=== PATIENT | female | born 1985 | race Caucasian/White ===

== ENCOUNTER 2025-02-02 21:22 | Inpatient (IN) ==
[2025-02-02] MEDS ORDERED: OXYTOCIN 30 UNITS/NSS 30 UNITS/500 ML BAG IV PRN (22:18)
--- NOTE | 2025-02-02 22:20 | History & Physical Report ---
Date of Service February 02, 2025 Assessment & Plan (1) Rupture, membranes, premature: Plan grossly ruptured. fetus category one. Not really traci. Offered expectant management with walking to see if contractions start or pit now. Would like more conservative management. Discussed would wait no more than 6-8 hours and would then need pitocin if not traci or not making progress. She expresses understanding. History of Present Illness Chief Complaint: prom Primary Care Provider: Elsi Tarango PA-C Patient is a 39yowf with iup at 40 0/7 who presents to labor and delivery with complaints of large gush of fluid at 8pm. Clear, continued leaking. no vb. not really noting contractions. +fm. 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 most sporadic - echo recommended--wnl ak OB Labs: Blood Type A Positive 07/19/24 Antibody Screen NEGATIVE 07/19/24 Hgb 11.2 g/dl (12.0-16.0) L 11/10/24 Hct 33.3 % (37.0-47.0) L 11/10/24 MCV 84.8 fL (80.0-100.0) 07/19/24 Plt Count 222 K/uL (130-400) 07/19/24 Rubella IgG Antibody Immune (Immune) 07/19/24 Treponema pallidum Ab Negative (Negative) 11/10/24 Hep Bs Antigen Negative (Negative) 07/19/24 Hepatitis C Antibody Negative (Negative) 07/19/24 HIV 1&2 Ab/P24 Ag 4thGn Negative (Negative) 07/19/24 Glucose 1 Hr 50 gm 141 mg/dl (70-130) H 11/10/24 Maternal Serum AFP 39.5 ng/mL 08/15/24 OB Optional Labs: Chlamydia trachomatis RNA Not Detected (NotDetected) 07/19/24 Neisseria gonorrhoeae RNA Not Detected (NotDetected) 07/19/24 Alpha Fetoprotein Triple Screen SEE NOTE 08/15/24 Labs Reviewed: low risk panorama--[facility] genetics positive hemachromatosis and another --ak fob negative genetic screening. gbs neg Allergies Allergy/AdvReac Type Severity Reaction Status Date / Time Cephalosporins Allergy hives and Verified 02/02/25 21:38 low BP Home Medications Medication Instructions Recorded Confirmed Type prenat.vits,davida,php-[id number] PO 10/07/22 01/30/25 History aspirin 81 mg PO DAILY 11/10/24 02/02/25 History Patient History Medical History Low lying placenta nos or without hemorrhage, unspecified trimester Cholesteatoma History of chicken pox Exposure to cat feces Urticaria Allergic rhinitis Allergy to macrolide Allergy to cephalosporin Surgical History History of ear surgery cholesteatoma Family History Mother Asthma Allergic rhinitis Parkinson disease Sister Asthma Allergic rhinitis Grandfather (Paternal) Myocardial infarction Father Hypertension Other Breast cancer Denies family history of Ovarian cancer Prostate cancer Colorectal cancer Social History Smoking Status: Never smoker Second Hand Exposure: No; Do You Dip or Chew Tobacco: No; Hx Alcohol Use: No Hx Substance Use: No Preferred Language: [place] Communication Ability: Effective Mortgage Lender Required: No Beliefs That Will Affect Care: None marital status: marital status details: Andrews Fortune (42) [phone] Current Living Situation: Spouse Current Living Situation Comment: lives with spouse, cat-spouse changing litter current occupational status: employed 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 Other Information That Helps Us Care for You: No Feels Safe at Home: Yes Safety Concerns: Feels Safe At This Time Childhood Exposure to Second-Hand Smoke: No Diet: regular caffeine: Yes Dental Care, Regularly: Yes Physical Activity Frequency: 3-4 Times per Week Seatbelt Use: always Sunscreen Use: Yes Assistive Devices: Glasses Physical Exam Constitutional: WD/WN, vitals as above Gastrointestinal (Abdomen): soft, nt, nd, gravid Psychiatric: A+Ox3, euthymic affect Genitourinary: sse--grossly ruptured sve--/-3 toco--carlos efm--130s with mod variability, accels to 160s, no decels Results & Data Vital Signs (Past 12 Hours) Vital Signs Temp Pulse Resp BP 02/02/25 21:42 36.7 C 18 137/86 02/02/25 21:37 36.7 C 95 H 18 137/86 Coding Level of Care Code None Diagnoses Rupture, membranes, premature O42.90
[2025-02-02 23:21] LABS: Hematocrit (blood only) 34.0 % (37.0-47.0); Hemoglobin 10.8 g/dl (12.0-16.0); Mean Corpuscular Hemoglobin 26.4 pg (25.0-34.0); Mean Corpuscular Volume 83.1 fL (80.0-100.0); Platelet Count 171 K/uL (130-400); RDW Standard Deviation 47.3 fL (36.4-46.3); Red Blood Count 4.09 M/uL (4.20-5.40); White Blood Count 10.03 K/ul (4.8-10.8)
[2025-02-03] MEDS: LACTATED RINGER'S 1,000 ML IV PRN (03:14)
[2025-02-03] MEDS: OXYTOCIN 30 UNITS/NSS 30 UNITS/500 ML BAG IV PRN (03:14)
--- NOTE | 2025-02-03 07:27 | Anesthesiology Consultation ---
Date of Service February 03, 2025 Assessment & Plan Chart Review Chart Review: Acceptable Risk for Surgery, Patient NOT seen in Pre Admission Testing and Acceptable Risk for Labor Epidural Consults Requested none ASA ASA2 Proposed Anesthesia Anesthesia Type: Labor Epidural and CSE History Height/Weight Height: 5 ft 5 in Weight: 83.915 kg Allergies Allergy/AdvReac Type Severity Reaction Status Date / Time Cephalosporins Allergy hives and Verified 02/02/25 21:38 low BP Medications Home Medications Medication Instructions Recorded Confirmed Last Taken prenat.vits,davida,[id number] PO 10/07/22 01/30/25 02/01/25 21:00 aspirin 81 mg PO DAILY 11/10/24 02/02/25 02/01/25 21:00 Active Medications Generic Name Dose Route Start Last Admin Trade Name Freq PRN Reason Stop Dose Admin Lactated Ringer's 1,000 mls @ 125 mls/hr 02/02/25 22:18 02/03/25 06:45 Lr IV 02/04/25 22:17 999 mls/hr .Q8H PRN Infusion L&D Protocol Protocol Oxytocin 30 units in 500 mls @ 10 mls/hr 02/03/25 03:03 02/03/25 05:53 Pitocin 30 Units/Nss IV 02/05/25 03:02 0.6 units/hr .Q24H PRN 10 mls/hr Labor Induction/Augmentation Titration Protocol 0.6 UNITS/HR Past Medical History Medical History Low lying placenta nos or without hemorrhage, unspecified trimester Cholesteatoma History of chicken pox Exposure to cat feces Urticaria Allergic rhinitis Allergy to macrolide Allergy to cephalosporin Exercise / Class Metabolic Activity II 4-5 Yardwork/Stairs/Walk up hill Past Family History Family History Mother Asthma Allergic rhinitis Parkinson disease Sister Asthma Allergic rhinitis Grandfather (Paternal) Myocardial infarction Father Hypertension Other Breast cancer Denies family history of Ovarian cancer Prostate cancer Colorectal cancer Past Surgical History Surgical History History of ear surgery cholesteatoma Past Anesthesia History No Hx of Anesthesia Complications and No Family Hx of Anesthesia Complications History of PONV No Hx of PONV and No Hx of Motion Sickness Social History Smoking Status: Never smoker Do You Dip or Chew Tobacco: No Hx Alcohol Use: No Hx Substance Use: No substance use type: does not use Physical Exam Vital Signs Last Vital Signs Temp 36.6 C 02/03/25 07:01 Pulse 84 02/03/25 07:02 Resp 22 02/03/25 07:01 BP 160/96 H 02/03/25 07:02 Testing Laboratory Results 02/02/25 22:39
[2025-02-03] MEDS: BUPIVACAINE 0.25% PF 30 ML VIAL ONE (08:09)
[2025-02-03] MEDS: fentANYL 2 MCG/ML BUPIVacaine 0.125%-NSS 100ML BAG ONE (08:10)
[2025-02-03] MEDS: LIDOCAINE 2%/EPINEPHRINE 1:200,000 20 ML PF ONE (08:10)
[2025-02-03] MEDS ORDERED: BUPIVACAINE 0.25% PF 30 ML VIAL EPI PRN (08:11)
[2025-02-03] MEDS ORDERED: LIDOCAINE 2% MPF LOCAL 5 ML VIAL EPI PRN (08:11)
[2025-02-03] MEDS ORDERED: diphenhydrAMINE 50 MG/ML VIAL IV PRN (08:11)
[2025-02-03] MEDS ORDERED: NALOXONE HCL 0.4 MG/1 ML VIAL/CARP IV PRN (08:11)
[2025-02-03] MEDS ORDERED: PROMETHAZINE 6.25 MG/50.25 ML BAG IV PRN (08:11)
[2025-02-03] MEDS ORDERED: NALBUPHINE HCL INJ 10 MG/ML AMP IV PRN (08:11)
[2025-02-03] MEDS ORDERED: SODIUM CHLORIDE 0.9% PF INJ 10 ML VIAL EPI PRN (08:11)
[2025-02-03] MEDS ORDERED: NALOXONE HCL 1 MG in SODIUM CHLORIDE 0.9% 1,000 ML IV PRN (08:11)
[2025-02-03] MEDS ORDERED: ROPIVACAINE 0.5% PF 5 MG/ML 20 ML VIAL EPI PRN (08:11)
[2025-02-03] MEDS: SODIUM CHLORIDE 0.9% PF INJ 10 ML VIAL ONE (08:22)
[2025-02-03] MEDS: BUPIVACAINE 0.25% PF 30 ML VIAL EPI STA (08:22)
[2025-02-03] MEDS: LIDOCAINE 2%/EPINEPHRINE 1:200,000 20 ML PF EPI STA (08:23)
[2025-02-03] MEDS: SODIUM CHLORIDE 0.9% PF INJ 10 ML VIAL EPI STA (08:23)
--- NOTE | 2025-02-03 09:04 | Labor Progress Brief Note ---
Date of Service February 03, 2025 Subjective comfortable w/ epidural Assessment & Plan (1) Rupture, membranes, premature: Plan: 39 yo G1 at 40 1/7 wga presents w/ prom VSS Fetus cat 1 Labor - pit at [address] Admission and Anticipated Discharge Date Admission Date: February 02, 2025 Physical Exam Genitourinary: Manual OB Exam: + cervical dilation (2-3), + cervical effacement 50% and + station -2 OB Exam Monitor Tracing: + external FHT monitor used, + external uterine monitor used (q3) and + category I (130-135/mod/+accel/-decel) Results & Data Vital Signs (Past 12 Hours) Vital Signs Temp Pulse Resp BP Pulse Ox 02/03/25 08:55 95 H 98 02/03/25 08:50 116 H 97 02/03/25 08:48 100 H 106/63 02/03/25 08:45 98 H 98 02/03/25 08:44 84 104/64 02/03/25 08:40 106 H 97 02/03/25 08:37 94 H 110/62 02/03/25 08:35 105 H 97 02/03/25 08:33 100 H 118/71 02/03/25 08:30 107 H 98 02/03/25 08:28 94 H 111/58 L 02/03/25 08:25 117 H 97 02/03/25 08:24 90 104/58 L 02/03/25 08:20 111 H 97 02/03/25 08:17 93 H 97/58 L 02/03/25 08:15 97 H 101/63 98 02/03/25 08:13 82 102/56 L 02/03/25 08:11 80 100/58 L 02/03/25 08:10 76 96 02/03/25 08:05 87 86/56 L 96 02/03/25 08:04 102 H 98/65 L 02/03/25 08:02 98 H 97/55 L 02/03/25 08:00 104 H 97 02/03/25 07:55 122 H 97 02/03/25 07:50 94 H 100 02/03/25 07:45 102 H 98 02/03/25 07:40 99 H 98 02/03/25 07:35 101 H 98 02/03/25 07:30 93 H 98 02/03/25 07:25 88 97 02/03/25 07:02 84 160/96 H 02/03/25 07:01 22 02/03/25 07:01 97.9 F 22 02/03/25 05:55 71 140/98 02/03/25 05:43 75 141/93 H 02/03/25 04:57 98.1 F 80 16 102/64 02/03/25 03:44 79 119/76 02/03/25 02:52 97.9 F 88 16 117/77 02/02/25 23:50 97.9 F 02/02/25 21:42 98.1 F 18 137/86 02/02/25 21:37 98.1 F 95 H 18 137/86 Coding Level of Care Code None Diagnoses Rupture, membranes, premature O42.90
--- NOTE | 2025-02-03 13:26 | Labor Progress Brief Note ---
Date of Service February 03, 2025 Subjective comfortable w/ epidural, pit was turned off earlier due to decel Assessment & Plan (1) Rupture, membranes, premature: Plan: 39 yo G1 at 40 1/7 wga presents w/ prom VSS Fetus cat 1 Labor - pit was stopped x 1hr due to decels, RN checked and progress noted 3-4. Fetus allowed to recover to cat 1 with hydration, pit now at 4 again GBS neg epidural in place Admission and Anticipated Discharge Date Admission Date: February 02, 2025 Physical Exam Genitourinary: OB Exam Monitor Tracing: + external FHT monitor used, + external uterine monitor used (q3) and + category I (130-135/mod/+accel/-decel) Results & Data Vital Signs (Past 12 Hours) Vital Signs Temp Pulse Resp BP Pulse Ox 02/03/25 13:20 85 100 02/03/25 13:18 93 H 116/71 02/03/25 13:15 88 99 02/03/25 13:10 86 100 02/03/25 13:05 90 100 02/03/25 13:03 99 H 124/73 02/03/25 13:00 94 H 100 02/03/25 12:55 94 H 100 02/03/25 12:50 97 H 99 02/03/25 12:49 111 H 146/80 H 02/03/25 12:45 99 H 100 02/03/25 12:40 97 H 100 02/03/25 12:35 93 H 99 02/03/25 12:33 93 H 124/80 02/03/25 12:30 100 H 99 02/03/25 12:25 110 H 99 02/03/25 12:20 96 H 100 02/03/25 12:18 101 H 114/71 02/03/25 12:15 116 H 99 02/03/25 12:10 91 H 100 02/03/25 12:05 99 H 100 02/03/25 12:03 85 116/81 02/03/25 12:00 91 H 100 02/03/25 11:55 91 H 100 02/03/25 11:50 92 H 100 02/03/25 11:48 86 116/78 02/03/25 11:45 77 100 02/03/25 11:40 85 100 02/03/25 11:36 84 90 02/03/25 11:35 85 100 02/03/25 11:34 84 122/76 02/03/25 11:30 91 H 98 02/03/25 11:28 87 91 02/03/25 11:25 88 99 02/03/25 11:20 95 H 100 02/03/25 11:19 90 111/68 02/03/25 11:15 81 99 02/03/25 11:10 79 99 02/03/25 11:05 104 H 100 02/03/25 11:04 77 106/59 L 02/03/25 11:00 83 98 02/03/25 10:55 81 99 02/03/25 10:50 89 100 02/03/25 10:48 86 105/60 02/03/25 10:45 81 99 02/03/25 10:40 96 H 98 02/03/25 10:35 89 98 02/03/25 10:34 19 02/03/25 10:34 97.7 F 19 02/03/25 10:32 93 H 116/74 02/03/25 10:30 122 H 99 02/03/25 10:25 90 100 02/03/25 10:22 90 111/71 02/03/25 10:20 80 100 02/03/25 10:15 88 100 02/03/25 10:13 85 111/71 02/03/25 10:10 97 H 99 02/03/25 10:05 85 97 02/03/25 10:02 116 H 105/66 02/03/25 10:00 101 H 98 02/03/25 09:55 92 H 97 02/03/25 09:53 93 H 109/72 02/03/25 09:50 93 H 97 02/03/25 09:45 99 H 96 02/03/25 09:43 101 H 109/70 02/03/25 09:40 91 H 97 02/03/25 09:35 109 H 96 02/03/25 09:33 90 112/67 02/03/25 09:30 110 H 98 02/03/25 09:25 96 H 97 02/03/25 09:23 100 H 118/72 02/03/25 09:20 109 H 100 02/03/25 09:18 76 94 02/03/25 09:15 79 96 02/03/25 09:13 94 02/03/25 09:13 100 H 02/03/25 09:13 85 103/57 L 02/03/25 09:10 99 H 97 02/03/25 09:05 83 94 02/03/25 09:03 103 H 102/61 02/03/25 09:00 106 H 98 02/03/25 08:55 95 H 98 02/03/25 08:50 116 H 97 02/03/25 08:48 100 H 106/63 02/03/25 08:45 98 H 98 02/03/25 08:44 84 104/64 02/03/25 08:40 106 H 97 02/03/25 08:37 94 H 110/62 02/03/25 08:35 105 H 97 02/03/25 08:33 100 H 118/71 02/03/25 08:30 107 H 98 02/03/25 08:28 94 H 111/58 L 02/03/25 08:25 117 H 97 02/03/25 08:24 90 104/58 L 02/03/25 08:20 111 H 97 02/03/25 08:17 93 H 97/58 L 02/03/25 08:15 97 H 101/63 98 02/03/25 08:13 82 102/56 L 02/03/25 08:11 80 100/58 L 02/03/25 08:10 76 96 02/03/25 08:05 87 86/56 L 96 02/03/25 08:04 102 H 98/65 L 02/03/25 08:02 98 H 97/55 L 02/03/25 08:00 104 H 97 02/03/25 07:55 122 H 97 02/03/25 07:50 94 H 100 02/03/25 07:45 102 H 98 02/03/25 07:40 99 H 98 02/03/25 07:35 101 H 98 02/03/25 07:30 93 H 98 02/03/25 07:25 88 97 02/03/25 07:02 84 160/96 H 02/03/25 07:01 22 02/03/25 07:01 97.9 F 22 02/03/25 05:55 71 140/98 02/03/25 05:43 75 141/93 H 02/03/25 04:57 98.1 F 80 16 102/64 02/03/25 03:44 79 119/76 02/03/25 02:52 97.9 F 88 16 117/77 Coding Level of Care Code None Diagnoses Rupture, membranes, premature O42.90
--- NOTE | 2025-02-03 15:56 | Labor Progress Brief Note ---
Date of Service February 03, 2025 Subjective comfortable w/ epidural, pit at 8 now Assessment & Plan (1) Rupture, membranes, premature: Plan: 39 yo G1 at 40 1/7 wga presents w/ prom VSS Fetus cat 2 but reassuinrg. Primarily cat 1, but during check and shortly before had a short decel that recovered so will continue to monitor Labor - pit at 8, good progress noted. Continue pitocin GBS neg epidural in place Admission and Anticipated Discharge Date Admission Date: February 02, 2025 Physical Exam Genitourinary: Manual OB Exam: + cervical dilation 5 cm, + cervical effacement 80% and + station -1 OB Exam Monitor Tracing: + external FHT monitor used, + external uterine monitor used and + category II (120/mod/+accel/?just had decel while laying during check/rotating) Results & Data Vital Signs (Past 12 Hours) Vital Signs Temp Pulse Resp BP Pulse Ox 02/03/25 15:50 89 99 02/03/25 15:49 101 H 100/64 02/03/25 15:45 106 H 96 02/03/25 15:40 88 98 02/03/25 15:35 106 H 97 02/03/25 15:33 104 H 116/76 02/03/25 15:30 105 H 98 02/03/25 15:25 94 H 98 02/03/25 15:24 101 H 92 02/03/25 15:20 93 H 98 02/03/25 15:19 88 126/77 02/03/25 15:15 90 98 02/03/25 15:12 100 H 93 02/03/25 15:10 93 H 99 02/03/25 15:05 93 H 98 02/03/25 15:03 94 H 114/73 02/03/25 15:00 92 H 97 02/03/25 14:55 92 H 99 02/03/25 14:50 103 H 98 02/03/25 14:49 91 H 125/81 02/03/25 14:45 100 H 98 02/03/25 14:40 98.1 F 104 H 98 02/03/25 14:35 108 H 94 02/03/25 14:33 105 H 136/83 02/03/25 14:30 143 H 98 02/03/25 14:25 100 H 99 02/03/25 14:20 98 H 99 02/03/25 14:18 96 H 108/72 02/03/25 14:15 103 H 99 02/03/25 14:10 91 H 98 02/03/25 14:05 93 H 99 02/03/25 14:03 97 H 115/74 02/03/25 14:00 96 H 97 02/03/25 13:55 85 99 02/03/25 13:50 94 H 100 02/03/25 13:49 97 H 114/71 02/03/25 13:45 89 100 02/03/25 13:40 95 H 100 02/03/25 13:35 99 H 99 02/03/25 13:33 98 H 116/73 02/03/25 13:30 94 H 99 02/03/25 13:25 87 100 02/03/25 13:20 85 100 02/03/25 13:18 93 H 116/71 02/03/25 13:15 88 99 02/03/25 13:10 86 100 02/03/25 13:05 90 100 02/03/25 13:03 99 H 124/73 02/03/25 13:00 94 H 100 02/03/25 12:55 94 H 100 02/03/25 12:50 97 H 99 02/03/25 12:49 111 H 146/80 H 02/03/25 12:45 99 H 100 02/03/25 12:40 97 H 100 02/03/25 12:35 93 H 99 02/03/25 12:33 93 H 124/80 02/03/25 12:30 100 H 99 02/03/25 12:25 110 H 99 02/03/25 12:20 96 H 100 02/03/25 12:18 101 H 114/71 02/03/25 12:15 116 H 99 02/03/25 12:10 91 H 100 02/03/25 12:05 99 H 100 02/03/25 12:03 85 116/81 02/03/25 12:00 91 H 100 02/03/25 11:55 91 H 100 02/03/25 11:50 92 H 100 02/03/25 11:48 86 116/78 02/03/25 11:45 77 100 02/03/25 11:40 85 100 02/03/25 11:36 84 90 02/03/25 11:35 85 100 02/03/25 11:34 84 122/76 02/03/25 11:30 91 H 98 02/03/25 11:28 87 91 02/03/25 11:25 88 99 02/03/25 11:20 95 H 100 02/03/25 11:19 90 111/68 02/03/25 11:15 81 99 02/03/25 11:10 79 99 02/03/25 11:05 104 H 100 02/03/25 11:04 77 106/59 L 02/03/25 11:00 83 98 02/03/25 10:55 81 99 02/03/25 10:50 89 100 02/03/25 10:48 86 105/60 02/03/25 10:45 81 99 02/03/25 10:40 96 H 98 02/03/25 10:35 89 98 02/03/25 10:34 19 02/03/25 10:34 97.7 F 19 02/03/25 10:32 93 H 116/74 02/03/25 10:30 122 H 99 02/03/25 10:25 90 100 02/03/25 10:22 90 111/71 02/03/25 10:20 80 100 02/03/25 10:15 88 100 02/03/25 10:13 85 111/71 02/03/25 10:10 97 H 99 02/03/25 10:05 85 97 02/03/25 10:02 116 H 105/66 02/03/25 10:00 101 H 98 02/03/25 09:55 92 H 97 02/03/25 09:53 93 H 109/72 02/03/25 09:50 93 H 97 02/03/25 09:45 99 H 96 02/03/25 09:43 101 H 109/70 02/03/25 09:40 91 H 97 02/03/25 09:35 109 H 96 02/03/25 09:33 90 112/67 02/03/25 09:30 110 H 98 02/03/25 09:25 96 H 97 02/03/25 09:23 100 H 118/72 02/03/25 09:20 109 H 100 02/03/25 09:18 76 94 02/03/25 09:15 79 96 02/03/25 09:13 94 02/03/25 09:13 100 H 02/03/25 09:13 85 103/57 L 02/03/25 09:10 99 H 97 02/03/25 09:05 83 94 02/03/25 09:03 103 H 102/61 02/03/25 09:00 106 H 98 02/03/25 08:55 95 H 98 02/03/25 08:50 116 H 97 02/03/25 08:48 100 H 106/63 02/03/25 08:45 98 H 98 02/03/25 08:44 84 104/64 02/03/25 08:40 106 H 97 02/03/25 08:37 94 H 110/62 02/03/25 08:35 105 H 97 02/03/25 08:33 100 H 118/71 02/03/25 08:30 107 H 98 02/03/25 08:28 94 H 111/58 L 02/03/25 08:25 117 H 97 02/03/25 08:24 90 104/58 L 02/03/25 08:20 111 H 97 02/03/25 08:17 93 H 97/58 L 02/03/25 08:15 97 H 101/63 98 02/03/25 08:13 82 102/56 L 02/03/25 08:11 80 100/58 L 02/03/25 08:10 76 96 02/03/25 08:05 87 86/56 L 96 02/03/25 08:04 102 H 98/65 L 02/03/25 08:02 98 H 97/55 L 02/03/25 08:00 104 H 97 02/03/25 07:55 122 H 97 02/03/25 07:50 94 H 100 02/03/25 07:45 102 H 98 02/03/25 07:40 99 H 98 02/03/25 07:35 101 H 98 02/03/25 07:30 93 H 98 02/03/25 07:25 88 97 02/03/25 07:02 84 160/96 H 02/03/25 07:01 22 02/03/25 07:01 97.9 F 22 02/03/25 05:55 71 140/98 02/03/25 05:43 75 141/93 H 02/03/25 04:57 98.1 F 80 16 102/64 Coding Level of Care Code None Diagnoses Rupture, membranes, premature O42.90
[2025-02-03] MEDS: CALCIUM CARBONATE 500 MG CHEWABLE TAB PO PRN (17:03)
[2025-02-03] MEDS: fentANYL 2 MCG/ML BUPIVacaine 0.125%-NSS 100ML BAG EPI PRN (17:28)
[2025-02-03] MEDS: ACETAMINOPHEN 325 MG TAB PO PRN (18:06)
[2025-02-03] MEDS: ONDANSETRON INJ 2 MG/ML 2 ML VIAL IV PRN (18:15)
--- NOTE | 2025-02-03 18:25 | Labor Progress Brief Note ---
Date of Service February 03, 2025 Subjective comfortable w/ epidural, pit at 8 Assessment & Plan (1) Rupture, membranes, premature: Plan: 39 yo G1 at 40 1/7 wga presents w/ prom VSS Fetus cat 2 but reassuring w/ mod variability still, occ variables Labor - pit remains at 8, continued good progress noted. Continue pitocin GBS neg epidural in place Admission and Anticipated Discharge Date Admission Date: February 02, 2025 Physical Exam Genitourinary: Manual OB Exam: + cervical dilation (8-9), + cervical effacement 90% and + station 0 OB Exam Monitor Tracing: + external FHT monitor used, + external uterine monitor used (q4) and + category II (135- 140/mod/+accel/intermit variable) Results & Data Vital Signs (Past 12 Hours) Vital Signs Temp Pulse Resp BP Pulse Ox 02/03/25 18:20 133 H 142/84 H 02/03/25 18:15 139 H 98 02/03/25 18:13 112 H 91 02/03/25 18:10 101 H 99 02/03/25 18:05 110 H 99 02/03/25 18:03 98 H 133/85 02/03/25 18:00 95 H 99 02/03/25 17:55 95 H 98 02/03/25 17:50 96 H 98 02/03/25 17:49 100 H 135/86 02/03/25 17:45 116 H 99 02/03/25 17:40 147 H 98 02/03/25 17:35 90 100 02/03/25 17:34 93 H 136/84 02/03/25 17:30 112 H 100 02/03/25 17:25 99 H 100 02/03/25 17:20 108 H 100 02/03/25 17:19 104 H 137/86 02/03/25 17:15 96 H 100 02/03/25 17:10 97 H 98 02/03/25 17:05 110 H 99 02/03/25 17:00 101 H 99 02/03/25 16:55 82 99 02/03/25 16:50 89 100 02/03/25 16:48 100 H 103/65 02/03/25 16:45 81 98 02/03/25 16:40 83 98 02/03/25 16:35 85 98 02/03/25 16:33 80 101/56 L 02/03/25 16:30 76 98 02/03/25 16:25 79 99 02/03/25 16:20 86 99 02/03/25 16:18 82 108/61 02/03/25 16:15 81 100 02/03/25 16:10 90 99 02/03/25 16:05 85 100 02/03/25 16:00 85 100 02/03/25 15:55 88 99 02/03/25 15:50 89 99 02/03/25 15:49 101 H 100/64 02/03/25 15:45 106 H 96 02/03/25 15:40 88 98 02/03/25 15:35 106 H 97 02/03/25 15:33 104 H 116/76 02/03/25 15:30 105 H 98 02/03/25 15:25 94 H 98 02/03/25 15:24 101 H 92 02/03/25 15:20 93 H 98 02/03/25 15:19 88 126/77 02/03/25 15:15 90 98 02/03/25 15:12 100 H 93 02/03/25 15:10 93 H 99 02/03/25 15:05 93 H 98 02/03/25 15:03 94 H 114/73 02/03/25 15:00 92 H 97 02/03/25 14:55 92 H 99 02/03/25 14:50 103 H 98 02/03/25 14:49 91 H 125/81 02/03/25 14:45 100 H 98 02/03/25 14:40 98.1 F 104 H 98 02/03/25 14:35 108 H 94 02/03/25 14:33 105 H 136/83 02/03/25 14:30 143 H 98 02/03/25 14:25 100 H 99 02/03/25 14:20 98 H 99 02/03/25 14:18 96 H 108/72 02/03/25 14:15 103 H 99 02/03/25 14:10 91 H 98 02/03/25 14:05 93 H 99 02/03/25 14:03 97 H 115/74 02/03/25 14:00 96 H 97 02/03/25 13:55 85 99 02/03/25 13:50 94 H 100 02/03/25 13:49 97 H 114/71 02/03/25 13:45 89 100 02/03/25 13:40 95 H 100 02/03/25 13:35 99 H 99 02/03/25 13:33 98 H 116/73 02/03/25 13:30 94 H 99 02/03/25 13:25 87 100 02/03/25 13:20 85 100 02/03/25 13:18 93 H 116/71 02/03/25 13:15 88 99 02/03/25 13:10 86 100 02/03/25 13:05 90 100 02/03/25 13:03 99 H 124/73 02/03/25 13:00 94 H 100 02/03/25 12:55 94 H 100 02/03/25 12:50 97 H 99 02/03/25 12:49 111 H 146/80 H 02/03/25 12:45 99 H 100 02/03/25 12:40 97 H 100 02/03/25 12:35 93 H 99 02/03/25 12:33 93 H 124/80 02/03/25 12:30 100 H 99 02/03/25 12:25 110 H 99 02/03/25 12:20 96 H 100 02/03/25 12:18 101 H 114/71 02/03/25 12:15 116 H 99 02/03/25 12:10 91 H 100 02/03/25 12:05 99 H 100 02/03/25 12:03 85 116/81 02/03/25 12:00 91 H 100 02/03/25 11:55 91 H 100 02/03/25 11:50 92 H 100 02/03/25 11:48 86 116/78 02/03/25 11:45 77 100 02/03/25 11:40 85 100 02/03/25 11:36 84 90 02/03/25 11:35 85 100 02/03/25 11:34 84 122/76 02/03/25 11:30 91 H 98 02/03/25 11:28 87 91 02/03/25 11:25 88 99 02/03/25 11:20 95 H 100 02/03/25 11:19 90 111/68 02/03/25 11:15 81 99 02/03/25 11:10 79 99 02/03/25 11:05 104 H 100 02/03/25 11:04 77 106/59 L 02/03/25 11:00 83 98 02/03/25 10:55 81 99 02/03/25 10:50 89 100 02/03/25 10:48 86 105/60 02/03/25 10:45 81 99 02/03/25 10:40 96 H 98 02/03/25 10:35 89 98 02/03/25 10:34 19 02/03/25 10:34 97.7 F 19 02/03/25 10:32 93 H 116/74 02/03/25 10:30 122 H 99 02/03/25 10:25 90 100 02/03/25 10:22 90 111/71 02/03/25 10:20 80 100 02/03/25 10:15 88 100 02/03/25 10:13 85 111/71 02/03/25 10:10 97 H 99 02/03/25 10:05 85 97 02/03/25 10:02 116 H 105/66 02/03/25 10:00 101 H 98 02/03/25 09:55 92 H 97 02/03/25 09:53 93 H 109/72 02/03/25 09:50 93 H 97 02/03/25 09:45 99 H 96 02/03/25 09:43 101 H 109/70 02/03/25 09:40 91 H 97 02/03/25 09:35 109 H 96 02/03/25 09:33 90 112/67 02/03/25 09:30 110 H 98 02/03/25 09:25 96 H 97 02/03/25 09:23 100 H 118/72 02/03/25 09:20 109 H 100 02/03/25 09:18 76 94 02/03/25 09:15 79 96 02/03/25 09:13 94 02/03/25 09:13 100 H 02/03/25 09:13 85 103/57 L 02/03/25 09:10 99 H 97 02/03/25 09:05 83 94 02/03/25 09:03 103 H 102/61 02/03/25 09:00 106 H 98 02/03/25 08:55 95 H 98 02/03/25 08:50 116 H 97 02/03/25 08:48 100 H 106/63 02/03/25 08:45 98 H 98 02/03/25 08:44 84 104/64 02/03/25 08:40 106 H 97 02/03/25 08:37 94 H 110/62 02/03/25 08:35 105 H 97 02/03/25 08:33 100 H 118/71 02/03/25 08:30 107 H 98 02/03/25 08:28 94 H 111/58 L 02/03/25 08:25 117 H 97 02/03/25 08:24 90 104/58 L 02/03/25 08:20 111 H 97 02/03/25 08:17 93 H 97/58 L 02/03/25 08:15 97 H 101/63 98 02/03/25 08:13 82 102/56 L 02/03/25 08:11 80 100/58 L 02/03/25 08:10 76 96 02/03/25 08:05 87 86/56 L 96 02/03/25 08:04 102 H 98/65 L 02/03/25 08:02 98 H 97/55 L 02/03/25 08:00 104 H 97 02/03/25 07:55 122 H 97 02/03/25 07:50 94 H 100 02/03/25 07:45 102 H 98 02/03/25 07:40 99 H 98 02/03/25 07:35 101 H 98 02/03/25 07:30 93 H 98 02/03/25 07:25 88 97 02/03/25 07:02 84 160/96 H 02/03/25 07:01 22 02/03/25 07:01 97.9 F 22 Coding Level of Care Code None Diagnoses Rupture, membranes, premature O42.90
[2025-02-03] MEDS: ACETAMINOPHEN 325 MG TAB ONE (18:40)
--- NOTE | 2025-02-03 22:27 | Labor Progress Brief Note ---
Date of Service February 03, 2025 Subjective pushing for about 30 min Assessment & Plan (1) Rupture, membranes, premature: Plan: 39 yo G1 at 40 1/7 wga presents w/ prom VSS Fetus cat 2 but reassuring w/ mod variability still Labor - did practice push that was ineffective initially, now pushing more effectively with appropriate recovery to baseline and mod variability. Continue pushing GBS neg epidural in place Admission and Anticipated Discharge Date Admission Date: February 02, 2025 Physical Exam Genitourinary: EFM 135-140, mod variability, variables w/ pushing that recover and maintain at mod variability station +2 with effective pushing Results & Data Vital Signs (Past 12 Hours) Vital Signs Temp Pulse Resp BP Pulse Ox 02/03/25 22:20 127 H 98 02/03/25 22:15 112 H 98 02/03/25 22:10 90 02/03/25 22:10 125 H 02/03/25 22:10 117 H 94 02/03/25 22:05 126 H 90 02/03/25 22:00 99 H 98 02/03/25 21:55 83 99 02/03/25 21:51 95 H 89 L 02/03/25 21:50 110 H 99 02/03/25 21:45 117 H 99 02/03/25 21:40 107 H 98 02/03/25 21:35 96 H 100 02/03/25 21:30 103 H 100 02/03/25 21:25 83 98 02/03/25 21:20 141 H 97 02/03/25 21:15 97.9 F 122 H 18 98 02/03/25 21:10 122 H 100 02/03/25 21:05 109 H 98 02/03/25 21:04 136 H 141/78 H 02/03/25 21:00 111 H 99 02/03/25 20:55 80 97 02/03/25 20:50 87 97 02/03/25 20:49 78 109/59 L 02/03/25 20:45 82 97 02/03/25 20:40 82 98 02/03/25 20:35 91 H 97 02/03/25 20:33 93 H 113/66 02/03/25 20:30 76 98 02/03/25 20:25 78 97 02/03/25 20:20 96 H 98 02/03/25 20:19 74 119/55 L 02/03/25 20:15 90 97 02/03/25 20:10 84 98 02/03/25 20:05 117 H 98 02/03/25 20:03 109 H 134/72 02/03/25 20:02 113 H 90 02/03/25 20:00 90 98 02/03/25 19:55 93 H 100 02/03/25 19:50 83 97 02/03/25 19:48 88 140/80 02/03/25 19:45 82 99 02/03/25 19:40 79 99 02/03/25 19:35 102 H 94 02/03/25 19:33 103 H 140/80 02/03/25 19:30 83 97 02/03/25 19:25 84 99 02/03/25 19:20 85 100 02/03/25 19:18 81 136/80 02/03/25 19:15 88 99 02/03/25 19:10 81 100 02/03/25 19:05 92 H 99 02/03/25 19:04 106 H 91 02/03/25 19:03 99 H 136/93 02/03/25 19:02 18 02/03/25 19:02 18 02/03/25 19:00 111 H 98 02/03/25 18:55 95 H 99 02/03/25 18:50 108 H 98 02/03/25 18:48 108 H 130/82 02/03/25 18:45 100 H 99 02/03/25 18:40 103 H 98 02/03/25 18:35 99 H 98 02/03/25 18:33 93 H 126/78 02/03/25 18:30 104 H 97 02/03/25 18:25 110 H 95 02/03/25 18:20 98 02/03/25 18:20 128 H 02/03/25 18:20 133 H 142/84 H 02/03/25 18:15 139 H 98 02/03/25 18:13 112 H 91 02/03/25 18:10 101 H 99 02/03/25 18:05 110 H 99 02/03/25 18:03 98 H 133/85 02/03/25 18:00 95 H 99 02/03/25 17:55 95 H 98 02/03/25 17:50 96 H 98 02/03/25 17:49 100 H 135/86 02/03/25 17:45 116 H 99 02/03/25 17:40 147 H 98 02/03/25 17:35 90 100 02/03/25 17:34 93 H 136/84 02/03/25 17:30 112 H 100 02/03/25 17:25 99 H 100 02/03/25 17:20 108 H 100 02/03/25 17:19 104 H 137/86 02/03/25 17:15 96 H 100 02/03/25 17:10 97 H 98 02/03/25 17:05 110 H 99 02/03/25 17:00 101 H 99 02/03/25 16:55 82 99 02/03/25 16:50 89 100 02/03/25 16:48 100 H 103/65 02/03/25 16:45 81 98 02/03/25 16:40 83 98 02/03/25 16:35 85 98 02/03/25 16:33 80 101/56 L 02/03/25 16:30 76 98 02/03/25 16:25 79 99 02/03/25 16:20 86 99 02/03/25 16:18 82 108/61 02/03/25 16:15 81 100 02/03/25 16:10 90 99 02/03/25 16:05 85 100 02/03/25 16:00 85 100 02/03/25 15:55 88 99 02/03/25 15:50 89 99 02/03/25 15:49 101 H 100/64 02/03/25 15:45 106 H 96 02/03/25 15:40 88 98 02/03/25 15:35 106 H 97 02/03/25 15:33 104 H 116/76 02/03/25 15:30 105 H 98 02/03/25 15:25 94 H 98 02/03/25 15:24 101 H 92 02/03/25 15:20 93 H 98 02/03/25 15:19 88 126/77 02/03/25 15:15 90 98 02/03/25 15:12 100 H 93 02/03/25 15:10 93 H 99 02/03/25 15:05 93 H 98 02/03/25 15:03 94 H 114/73 02/03/25 15:00 92 H 97 02/03/25 14:55 92 H 99 02/03/25 14:50 103 H 98 02/03/25 14:49 91 H 125/81 02/03/25 14:45 100 H 98 02/03/25 14:40 98.1 F 104 H 98 02/03/25 14:35 108 H 94 02/03/25 14:33 105 H 136/83 02/03/25 14:30 143 H 98 02/03/25 14:25 100 H 99 02/03/25 14:20 98 H 99 02/03/25 14:18 96 H 108/72 02/03/25 14:15 103 H 99 02/03/25 14:10 91 H 98 02/03/25 14:05 93 H 99 02/03/25 14:03 97 H 115/74 02/03/25 14:00 96 H 97 02/03/25 13:55 85 99 02/03/25 13:50 94 H 100 02/03/25 13:49 97 H 114/71 02/03/25 13:45 89 100 02/03/25 13:40 95 H 100 02/03/25 13:35 99 H 99 02/03/25 13:33 98 H 116/73 02/03/25 13:30 94 H 99 02/03/25 13:25 87 100 02/03/25 13:20 85 100 02/03/25 13:18 93 H 116/71 02/03/25 13:15 88 99 02/03/25 13:10 86 100 02/03/25 13:05 90 100 02/03/25 13:03 99 H 124/73 02/03/25 13:00 94 H 100 02/03/25 12:55 94 H 100 02/03/25 12:50 97 H 99 02/03/25 12:49 111 H 146/80 H 02/03/25 12:45 99 H 100 02/03/25 12:40 97 H 100 02/03/25 12:35 93 H 99 02/03/25 12:33 93 H 124/80 02/03/25 12:30 100 H 99 02/03/25 12:25 110 H 99 02/03/25 12:20 96 H 100 02/03/25 12:18 101 H 114/71 02/03/25 12:15 116 H 99 02/03/25 12:10 91 H 100 02/03/25 12:05 99 H 100 02/03/25 12:03 85 116/81 02/03/25 12:00 91 H 100 02/03/25 11:55 91 H 100 02/03/25 11:50 92 H 100 02/03/25 11:48 86 116/78 02/03/25 11:45 77 100 02/03/25 11:40 85 100 02/03/25 11:36 84 90 02/03/25 11:35 85 100 02/03/25 11:34 84 122/76 02/03/25 11:30 91 H 98 02/03/25 11:28 87 91 02/03/25 11:25 88 99 02/03/25 11:20 95 H 100 02/03/25 11:19 90 111/68 02/03/25 11:15 81 99 02/03/25 11:10 79 99 02/03/25 11:05 104 H 100 02/03/25 11:04 77 106/59 L 02/03/25 11:00 83 98 02/03/25 10:55 81 99 02/03/25 10:50 89 100 02/03/25 10:48 86 105/60 02/03/25 10:45 81 99 02/03/25 10:40 96 H 98 02/03/25 10:35 89 98 02/03/25 10:34 19 02/03/25 10:34 97.7 F 19 02/03/25 10:32 93 H 116/74 02/03/25 10:30 122 H 99 Coding Level of Care Code None Diagnoses Rupture, membranes, premature O42.90
[2025-02-04] MEDS: LIDOCAINE 1% LOCAL 20 ML VIAL INFIL PRN (01:56)
[2025-02-04] MEDS: IBUPROFEN 600 MG TAB PO ONE (02:05)
--- NOTE | 2025-02-04 02:05 | Delivery Summary ---
Vaginal Delivery Summary Date of Service February 04, 2025 Vaginal Delivery Summary and 2nd Degree LAC PREOPERATIVE DIAGNOSIS: 1. Single intrauterine at 40 2/7 wga 2. PROM 3. IVF 4. AMA POSTOPERATIVE DIAGNOSIS: 1. Single intrauterine at 40 2/7 wga 2. PROM 3. IVF 4. AMA 5. Delivered PROCEDURE: 1. Normal spontaneous vaginal delivery. SURGEON: Princess Vargas MD ANESTHESIA: Epidural. QUANTITATIVE BLOOD LOSS: 176 mL FLUIDS: Continuous LR. URINE OUTPUT: 100cc COMPLICATIONS: None. CONDITION: Stable. INDICATIONS: 39 yo G1 at 40 2/7 wga presented with PROM last night. She was started on pitocin after expectant management initially. She received an epidural and progressed slowly to complete and desired to push FINDINGS: A viable female , weight pending with Apgars of 7 and 8 at 1 and 5 minutes respectively. SPECIMEN: Cord blood OPERATIVE REPORT: The patient progressed to 10 cm, 100% effaced and +2 station, pushed over intact perineum with anesthesia to deliver a viable female , weight and Apgars as above. Head of delivered in IDALIA position. Loose nuchal cord was reduced. Body and shoulders were delivered without difficulty. was delivered to maternal abdomen and nursing staff. Delayed cord clamping was performed for 60 seconds. Cord was clamped and cut. Cord blood was obtained. Placenta delivered spontaneously intact with 3-vessel cord. IV oxytocin and fundal massage were given for excellent hemostasis. Vagina, cervix, perineum, and placenta were inspected. Second degree laceration was repaired using 3-0 vicryl, there was excellent hemostasis. Additional local anesthetic was administered to help with pain during repair. Hemostatic periurethral abrasions did not need repaired. Sponge and needle counts correct x2. No sponges were left behind. Mother and stable in immediate period. MNP Vaginal Delivery Charge Vaginal Delivery Codes: 27195 global code for the antepartum, delivery, and post- Delivery Type Details: and 2nd Degree LAC
[2025-02-04] MEDS ORDERED: OXYTOCIN 30 UNITS/NSS 30 UNITS/500 ML BAG IV PRN (02:14)
[2025-02-04] MEDS ORDERED: HYDROCORTISONE ACETATE 25 MG SUPP PR PRN (02:14)
[2025-02-04] MEDS: BENZOCAINE 20% SPRY 85 APPLN/85 GM CAN EXT PRN (07:22)
[2025-02-04] MEDS: PRENATAL VITAMIN 1 TAB PO SCH (07:43)
[2025-02-04] MEDS: DOCUSATE SODIUM 100 MG CAP PO SCH (07:43)
[2025-02-04] MEDS: ACETAMINOPHEN 325 MG TAB PO PRN (07:43)
[2025-02-04] MEDS: IBUPROFEN 600 MG TAB PO PRN (07:44)
--- NOTE | 2025-02-04 08:22 | Anesthesia Procedure Note ---
Date of Service February 04, 2025 Anesthesia Post Epidural Note Vital Signs Vital Signs: Temp Pulse Resp BP Pulse Ox O2 Del Method 36.6 C 92 H 16 118/71 99 Room Air 02/04/25 07:02/04/25 07:02/04/25 07:30 02/04/25 07:30 02/04/25 07:30 02/04/25 07:30 Pain Intensity Perineal: Pain Intensity: 4 Notes Mental Status: alert / awake / arousable Nausea / Vomiting: adequately controlled Pain: adequately controlled Airway Patency, RR, SpO2: stable & adequate BP & HR: stable & adequate Hydration State: stable & adequate Neuraxial Anesthesia: was administered and sensory block is resolving Anesthetic Complications: no major complications apparent Epidural: Removed without complications and With tip intact
[2025-02-04] MEDS: DIPHTHER/TETAN/PERTUS Vaccine (Tdap, Adol/Adult) 0.5mL IM ONE (09:00)
--- NOTE | 2025-02-05 06:29 | Obstetrical Progress Note ---
Date of Service <Lorrie Gentile MD - Last Filed: 02/05/25 07:15> February 05, 2025 Assessment & Plan <Lorrie Gentile MD - Last Filed: 02/05/25 07:15> (1) care following vaginal delivery: Plan -Stable routine care. Breast feeding. Rhesus positive. Rubella Immune. Continue to monitor. <Princess Vargas MD - Last Filed: 02/05/25 07:15> (1) care following vaginal delivery: Subjective <Lorrie Gentile MD - Last Filed: 02/05/25 07:15> Ambulation: ambulating normally Voiding: no voiding problems Passing Gas:: Yes Diet Tolerance:: regular diet Lochia:: Small Feeding Type:: breast feeding Current Pain Level(1-10): 2 Review of Systems All systems reviewed & are unremarkable except as noted in HPI & below i. Denies fever, chills, sweats ii. Denies SOB, difficulty breathing, chest pain, palpitations, chest pressure iii. Denies breast pain. iv. Denies Dysuria v. Denies headache or changes in vision. Physical Exam <Lorrie Gentile MD - Last Filed: 02/05/25 07:15> Constitutional WD/WN, vitals as above Respiratory normal respiratory effort, lungs clear to auscultation Cardiovascular RRR, no murmur, no edema Gastrointestinal (Abdomen) normal bowel sounds, soft, nontender, no hepatosplenomegaly On palpation of abdomen, fundus is at the level of the umbilicus. Uterus is firm and has begun involution, at approximately 1cm/day Skin no rashes, warm and dry Psychiatric A+Ox3, euthymic affect Results & Data <Lorrie Gentile MD - Last Filed: 02/05/25 07:15> Vital Signs (Past 12 Hours) Vital Signs Temp Pulse Resp BP Pulse Ox O2 Del Method 02/05/25 03:22 36.6 C 77 18 125/82 97 Room Air 02/04/25 22:58 36.7 C 83 18 120/75 97 Room Air 02/04/25 19:30 36.6 C 85 16 124/81 97 Room Air Supervising Physician <Princess Vargas MD - Last Filed: 02/05/25 07:15> Co-Signing Physician Notes Resident Physician Supervision Note: I interviewed and examined the patient. Discussed with Dr. Gentile and agree with findings and plan as documented in the note. Any exceptions or clarifications are listed here: PP1 s/p , doing well. VSS, exam benign. Continue routine care Documented By: Princess Vargas MD Resident Activity Tracking <Lorrie Gentile MD - Last Filed: 02/05/25 07:15> Resident Involvement: Resident Care Provided Care Provided: OB Delivery
[2025-02-05 23:45] VITALS: RESP 16
--- NOTE | 2025-02-06 06:33 | Obstetrical Progress Note ---
Date of Service <Lorrie Gentile MD - Last Filed: 02/06/25 07:26> February 06, 2025 Assessment & Plan <Lorrie Gentile MD - Last Filed: 02/06/25 07:26> (1) care following vaginal delivery: Plan -Continue stable and routine care. Bottle feeding/Breast feeding. Rhesus positive. Rubella Immune. Continue to monitor. <Mana Kaufman MD, FACOG - Last Filed: 02/07/25 08:35> (1) care following vaginal delivery: Subjective <Lorrie Gentile MD - Last Filed: 02/06/25 07:26> Ambulation: ambulating normally Voiding: no voiding problems Passing Gas:: Yes Diet Tolerance:: regular diet Lochia:: Small Feeding Type:: bottle feeding Current Pain Level(1-10): 1 PPD 2. Pt is resting comfortably in bed today. Review of Systems All systems reviewed & are unremarkable except as noted in HPI & below i. Denies fever, chills, sweats ii. Denies SOB, difficulty breathing, chest pain, palpitations, chest pressure iii. Denies breast pain. iv. Denies Dysuria v. Denies headache or changes in vision. Physical Exam <Lorrie Gentile MD - Last Filed: 02/06/25 07:26> Constitutional WD/WN, vitals as above Respiratory normal respiratory effort, lungs clear to auscultation Cardiovascular RRR, no murmur, no edema Gastrointestinal (Abdomen) normal bowel sounds, soft, nontender, no hepatosplenomegaly On palpation of abdomen, fundus is at the level umbilicus, and decreasing in height. Uterus is firm and has continued its involution, at approximatly 1cm/day Skin no rashes, warm and dry Psychiatric A+Ox3, euthymic affect Results & Data <Lorrie Gentile MD - Last Filed: 02/06/25 07:26> Vital Signs (Past 12 Hours) Vital Signs Temp Pulse Resp BP Pulse Ox O2 Del Method 02/05/25 23:30 36.7 C 74 16 128/78 98 Room Air 02/05/25 19:10 36.5 C 84 18 127/82 98 Room Air Supervising Physician <Mana Kaufman MD, FACOG - Last Filed: 02/07/25 08:35> Co-Signing Physician Notes Resident Physician Supervision Note: I was present with [Name of resident] during the history and exam. I discussed the case with the resident and agree with the findings and plan as documented in the note. Any exceptions or clarifications are listed here: [None] Documented By: Mana Kaufman MD, FACOG
[2025-02-06 08:31] VITALS: BP 113/69; PULSE 79; TEMP 98.4; O2SAT 97
== END 2025-02-06 14:50 | disposition home or self-care (01) | DRG 807 ==
LOC: OPB 21:22 → 4S1 21:25 → 4E2 02-04 04:25
DX: O26.893 Other specified pregnancy related conditions, third trimester; Z79.899 Other long term (current) drug therapy; Q87.0 Congenital malformation syndromes predominantly affecting facial appearance; O09.813 Supervision of pregnancy resulting from assisted reproductive technology, third trimester; O76 Abnormality in fetal heart rate and rhythm complicating labor and delivery; O70.1 Second degree perineal laceration during delivery; Z79.82 Long term (current) use of aspirin; Z88.2 Allergy status to sulfonamides; O69.81X0 Labor and delivery complicated by cord around neck, without compression, not applicable or unspecified; Z3A.40 40 weeks gestation of pregnancy; O42.02 Full-term premature rupture of membranes, onset of labor within 24 hours of rupture; Z37.0 Single live birth; O09.513 Supervision of elderly primigravida, third trimester